=== PATIENT | male | born 1945 | race Caucasian/White ===

== ENCOUNTER → 2016-06-10 | Outpatient (CLI) | payer MEDICARE ==
[~2016-06-10] MED LIST: WILL BRING LIST
== END | disposition home or self-care (01) ==
LOC: CFH 15:18
PROVIDERS: ATTEND Internal Medicine
DX: E78.5 Hyperlipidemia, unspecified (principal); R09.89 Other specified symptoms and signs involving the circulatory and respiratory systems
CPT/HCPCS: 93880

== ENCOUNTER 2018-01-04 11:09 | Day surgery (SDC) | payer MEDICARE ==
[~2018-01-04] VITALS: Ht 175.3 cm; Wt 104.5 kg
[2018-01-04 11:34] VITALS: BP 125/95
[2018-01-04] MEDS ORDERED: CHOL200085 PO (11:54)
[2018-01-04] MEDS ORDERED: RIVA20TA PO (11:54)
[2018-01-04] MEDS ORDERED: ZOLP-413 PO (11:54)
[2018-01-04] MEDS ORDERED: ALLO100T30 PO (11:54)
[2018-01-04] MEDS ORDERED: MULT-6 PO (11:54)
[2018-01-04] MEDS ORDERED: MELO7.5T31 PO (11:54)
[2018-01-04] MEDS ORDERED: HYDR-3240 PO ×2 (11:54)
[2018-01-04] MEDS ORDERED: METO25TA2 PO (11:54)
[2018-01-04] MEDS ORDERED: berberine PO (11:56)
[2018-01-04] MEDS ORDERED: trintellix PO (12:02)
[2018-01-04] MEDS ORDERED: PROPOFOL 10 MG/ML, 20ML ONE (13:06)
== END 2018-01-04 14:45 | disposition home or self-care (01) ==
LOC: CACL 11:09
PROVIDERS: ATTEND Internal Medicine Cardiovascular Disease
DX: I48.91 Unspecified atrial fibrillation (principal); I35.1 Nonrheumatic aortic (valve) insufficiency; I34.0 Nonrheumatic mitral (valve) insufficiency; Z85.46 Personal history of malignant neoplasm of prostate; Z79.899 Other long term (current) drug therapy; Z98.890 Other specified postprocedural states
CPT/HCPCS: 92960; 93005; 93312; 93321; 93325; J2704

== ENCOUNTER 2018-03-01 10:26 | Day surgery (SDC) | payer MEDICARE ==
[~2018-03-01] VITALS: Ht 175.3 cm; Wt 103.1 kg
[~2018-03-01 10:26] MED LIST changes: +ALLO100T30 PO; +CHOL200085 PO; +ESZO3TAB28 PO; +HYDR-3240 PO; +MELO7.5T31 PO; +METO25TA2 PO; +MULT-6 PO; +RIVA20TA PO; +SOTA120T14 PO; +ZOLP-413 PO; +berberine PO; +trintellix PO
[2018-03-01 11:03] VITALS: BP 129/101
[2018-03-01] MEDS ORDERED: UBID1CAP43 PO (11:19)
[2018-03-01] MEDS ORDERED: METO100T5 PO (11:19)
[2018-03-01] MEDS ORDERED: Berberine PO (11:25)
[2018-03-01] MEDS ORDERED: AMIO200T42 PO (11:37)
[2018-03-01 11:48] LABS: ANION GAP 4 mmol/L (5-15); CALCIUM 9.5 mg/dL (8.5-10.1); CHLORIDE 109 mmol/L (98-107); CREATININE 0.92 mg/dL (0.7-1.3)
[2018-03-01] MEDS ORDERED: PROPOFOL 10 MG/ML, 20ML ONE (12:20)
== END 2018-03-01 13:40 | disposition home or self-care (01) ==
LOC: OUT 10:26
PROVIDERS: ATTEND Internal Medicine Cardiovascular Disease
DX: I48.91 Unspecified atrial fibrillation (principal); I42.9 Cardiomyopathy, unspecified; I36.1 Nonrheumatic tricuspid (valve) insufficiency; Z85.46 Personal history of malignant neoplasm of prostate
CPT/HCPCS: 36415; 80048; 92960; J2704

== ENCOUNTER → 2018-03-17 | Outpatient (CLI) | payer MEDICARE ==
[~2018-03-17] MED LIST changes: +AMIO200T42 PO; +Berberine PO; +CHOL20002 PO; -CHOL200085 PO; +METO100T5 PO; +REGADENOSON 0.4 MG/5 ML SYRINGE ONE; +UBID1CAP43 PO
== END | disposition home or self-care (01) ==
LOC: CFH 08:21
PROVIDERS: ATTEND Internal Medicine Cardiovascular Disease
DX: I36.1 Nonrheumatic tricuspid (valve) insufficiency (principal)
CPT/HCPCS: 78452; 93017; A9502; J2785

== ENCOUNTER → 2018-04-30 | Outpatient (CLI) | payer MEDICARE ==
[~2018-04-30] VITALS: Ht 175.3 cm; Wt 103.2 kg
[~2018-04-30] MED LIST changes: +Alpha Lipoic Acid PO; +COLC0.6T37 PO; +FAMO20TA7 PO; +FURO-92 PO; +MAGN54LI PO; +METO25TA35 PO; +MULT-658 PO; +POTA20TA6 PO; +PROPOFOL 10 MG/ML, 20ML ONE; -REGADENOSON 0.4 MG/5 ML SYRINGE ONE
[2018-04-30 12:53] VITALS: BP 120/92
[2018-04-30 13:00] LABS: BASOPHILS # (AUTO) 0.04 x10^3/uL (0-0.1); BASOPHILS % (AUTO) 1 % (0-1); EOSINOPHILS % (AUTO) 1 % (1-7); LYMPHOCYTES # (AUTO) 1.82 x10^3/uL (1-3.4); LYMPHOCYTES % (AUTO) 23 % (22-44); MD NO; MEAN CORPUSCULAR HEMOGLOBIN 30.8 pg (27.5-34.5); MEAN CORPUSCULAR HGB CONC 33.7 g/dL (33.2-36.2); MEAN CORPUSCULAR VOLUME 91.4 fL (81-97); MEAN PLATELET VOLUME 7.8 fL (7.4-10.4); MONOCYTES # (AUTO) 0.43 x10^3/uL (0.2-0.8); MONOCYTES % (AUTO) 5 % (2-9); NEUTROPHILS % (AUTO) 70 % (42-75); PLATELET COUNT 419 x10^3/uL (130-400); RED BLOOD COUNT 4.35 x10^6/uL (4.38-5.82); RED CELL DISTRIBUTION WIDTH 14.1 % (9.4-14.8)
[2018-04-30 13:08] LABS: ANION GAP 3 mmol/L (5-15); CALCIUM 8.7 mg/dL (8.5-10.1); CHLORIDE 110 mmol/L (98-107); CREATININE 0.72 mg/dL (0.7-1.3)
== END | disposition home or self-care (01) ==
LOC: RAD 11:02
PROVIDERS: ATTEND Nurse Practitioner Family
DX: Z01.810 Encounter for preprocedural cardiovascular examination (principal); I42.9 Cardiomyopathy, unspecified; I48.1 Persistent atrial fibrillation; J90 Pleural effusion, not elsewhere classified; J98.11 Atelectasis
CPT/HCPCS: 36415; 71046; 80048; 85025; 92960; 93005; J2704

== ENCOUNTER 2018-05-13 08:07 | Observation (INO) | payer MEDICARE ==
[2018-05-10 10:13] LABS: BASOPHILS # (AUTO) 0.03 x10^3/uL (0-0.1); BASOPHILS % (AUTO) 1 % (0-1); EOSINOPHILS % (AUTO) 0 % (1-7); LYMPHOCYTES # (AUTO) 1.76 x10^3/uL (1-3.4); LYMPHOCYTES % (AUTO) 24 % (22-44); MD NO; MEAN CORPUSCULAR HEMOGLOBIN 31.1 pg (27.5-34.5); MEAN CORPUSCULAR VOLUME 91.5 fL (81-97); MEAN PLATELET VOLUME 8.1 fL (7.4-10.4); MONOCYTES # (AUTO) 0.58 x10^3/uL (0.2-0.8); MONOCYTES % (AUTO) 8 % (2-9); NEUTROPHILS # (AUTO) 4.89 x10^3/uL (1.8-6.8); NEUTROPHILS % (AUTO) 67 % (42-75); PLATELET COUNT 284 x10^3/uL (130-400); RED CELL DISTRIBUTION WIDTH 13.6 % (9.4-14.8)
[2018-05-10 10:25] LABS: ANION GAP 6 mmol/L (5-15); CALCIUM 9.1 mg/dL (8.5-10.1); CHLORIDE 110 mmol/L (98-107); CREATININE 0.92 mg/dL (0.7-1.3)
[~2018-05-13] VITALS: Ht 175.3 cm; Wt 100.0 kg
[~2018-05-13 08:07] MED LIST changes: -PROPOFOL 10 MG/ML, 20ML ONE
[2018-05-13] MEDS ORDERED: SODIUM CHLORIDE 0.9% 1,000 ML IV SCH (08:25)
[2018-05-13] MEDS ORDERED: MIDAZOLAM 1 MG/ML, 2ML ONE (09:49)
[2018-05-13] MEDS ORDERED: FENTANYL PF 250 MCG/5ML ONE (09:49)
[2018-05-13] MEDS ORDERED: PROTAMINE SULFATE 10 MG/ML, 5ML ONE (10:12)
[2018-05-13] MEDS ORDERED: LIDOCAINE 1%, 20ML ONE (10:12)
[2018-05-13] MEDS ORDERED: ROCURONIUM 10MG/ML,5ML ONE (10:17)
[2018-05-13] MEDS ORDERED: PROPOFOL 10 MG/ML, 20ML ONE (10:17)
[2018-05-13] MEDS ORDERED: SUCCINYLCHOLINE 20 MG/ML, 10ML ONE (10:17)
[2018-05-13] MEDS ORDERED: DEXAMETHASONE 4 MG/ML, 5ML ONE (10:17)
[2018-05-13] MEDS ORDERED: EPHEDRINE 50 MG/ML, 1ML ONE (10:17)
[2018-05-13] MEDS ORDERED: ONDANSETRON 2MG/ML, 2ML ONE ×2 (11:51)
[2018-05-13] MEDS ORDERED: NEOSTIGMINE 1 MG/ML, 10ML ONE (11:53)
[2018-05-13] MEDS ORDERED: HYDROmorphone 2 MG/ML, 1ML IVPush PRN (12:30)
[2018-05-13] MEDS ORDERED: hydrALAzine 20 MG/ML, 1ML IV PRN (12:30)
[2018-05-13] MEDS ORDERED: ONDANSETRON 2MG/ML, 2ML IV PRN (12:30)
[2018-05-13] MEDS ORDERED: MEPERIDINE/PF 25MG/0.5ML IVPush PRN (12:30)
[2018-05-13] MEDS ORDERED: FENTANYL PF 100 MCG/2ML IV PRN (12:30)
[2018-05-13] MEDS ORDERED: PROMETHAZINE 25 MG/ML, 1ML IV PRN (12:30)
[2018-05-13] MEDS ORDERED: EPHEDRINE 50 MG/ML, 1ML IVPush PRN (12:30)
[2018-05-13] MEDS ORDERED: ONDANSETRON ODT 8 MG PO PRN (12:30)
[2018-05-13] MEDS ORDERED: MORPHINE SULFATE 4 MG/ML, 1ML IVPush PRN (12:30)
[2018-05-13] MEDS ORDERED: LABETALOL 5MG/ML, 20ML IV PRN (12:30)
[2018-05-13] MEDS ORDERED: PROMETHAZINE 12.5 MG SUPP PR PRN (12:30)
[2018-05-13] MEDS ORDERED: ALBUTEROL SULFATE 2.5 MG/3 ML NPPB PRN (12:30)
[2018-05-13] MEDS ORDERED: DIAZEPAM 5 MG/ML, 2ML IVPush PRN (12:30)
[2018-05-13] MEDS ORDERED: HALOPERIDOL 5 MG/ML IV PRN (12:30)
[2018-05-13] MEDS ORDERED: MIDAZOLAM 1 MG/ML, 2ML IV PRN (12:30)
[2018-05-13] MEDS ORDERED: OXYcodone 5 MG/5 ML ORAL.SOL UDC PO PRN (12:30)
[2018-05-13] MEDS ORDERED: FENTANYL PF 100 MCG/2ML ONE (12:53)
[2018-05-13] MEDS ORDERED: OXYcodone 5 MG/5 ML ORAL.SOL UDC ONE (12:53)
[2018-05-13] MEDS ORDERED: ONDANSETRON 2MG/ML, 2ML IVPush PRN (13:00)
[2018-05-13] MEDS ORDERED: RIVAROXABAN 20 MG TABLET PO ONE (13:00)
[2018-05-13] MEDS ORDERED: ACETAMINOPHEN 325 MG TABLET PO PRN (13:00)
[2018-05-13] MEDS ORDERED: ZOLPIDEM 5MG TABLET PO PRN (13:00)
[2018-05-13 13:37] VITALS: BP 120/72
[2018-05-13] MEDS ORDERED: HYDR-3307 PO (19:41)
[2018-05-13 19:46] VITALS: BP 114/74
[2018-05-13] MEDS ORDERED: HYDROcodone/APAP 10/325 MG TABLET PO ONE (20:00)
[2018-05-14 01:34] VITALS: BP 108/70
[2018-05-14 09:48] VITALS: BP 112/61
== END 2018-05-14 11:45 | disposition home or self-care (01) ==
LOC: CACL 08:07 → 5SO 12:49 → CACL 13:18 → DCLOUNGE 05-14 11:30
PROVIDERS: ADMIT Internal Medicine Cardiovascular Disease; ATTEND Internal Medicine Cardiovascular Disease
DX: I48.91 Unspecified atrial fibrillation (principal); I48.3 Typical atrial flutter; I45.9 Conduction disorder, unspecified; Z79.01 Long term (current) use of anticoagulants
CPT/HCPCS: 36415; 71046; 80048; 85025; 85347; 93005; 93308; 93321; 93325; 93613; 93656; 93662; C1730; C1732; C1759; C1766; C1893; C1894; G0378; J0330; J1100; J2250; J2405; J2704; J2710; J2720; J3010; J3490

== ENCOUNTER 2018-09-21 14:59 | Outpatient (CLI) | payer MEDICARE | END 2018-09-21 23:59 | disposition home or self-care (01) | LOC: CFH 14:59 | PROVIDERS: ATTEND Internal Medicine | DX: R07.9 Chest pain, unspecified (principal); R07.81 Pleurodynia | CPT/HCPCS: 71046 ==

== ENCOUNTER 2019-02-23 10:59 | Outpatient (CLI) | payer MEDICARE ==
[~2019-02-23 10:59] MED LIST changes: +HYDR-36 PO
[2019-02-23 13:09] LABS: BASOPHILS # (AUTO) 0.05 x10^3/uL (0-0.1); BASOPHILS % (AUTO) 1 % (0-1); EOSINOPHILS # (AUTO) 0.26 x10^3/uL (0-0.4); EOSINOPHILS % (AUTO) 3 % (1-7); LYMPHOCYTES # (AUTO) 3.02 x10^3/uL (1-3.4); LYMPHOCYTES % (AUTO) 37 % (22-44); MD NO; MEAN CORPUSCULAR HEMOGLOBIN 30.2 pg (27.5-34.5); MEAN CORPUSCULAR HGB CONC 33.2 g/dL (33.2-36.2); MEAN CORPUSCULAR VOLUME 90.9 fL (81-97); MEAN PLATELET VOLUME 8.3 fL (7.4-10.4); MONOCYTES # (AUTO) 0.56 x10^3/uL (0.2-0.8); MONOCYTES % (AUTO) 7 % (2-9); NEUTROPHILS # (AUTO) 4.29 x10^3/uL (1.8-6.8); NEUTROPHILS % (AUTO) 53 % (42-75); PLATELET COUNT 292 x10^3/uL (130-400); RED BLOOD COUNT 5.33 x10^6/uL (4.38-5.82); RED CELL DISTRIBUTION WIDTH 13.8 % (9.4-14.8)
[2019-02-23 13:30] LABS: ANION GAP 6 mmol/L (5-15); CALCIUM 9.5 mg/dL (8.5-10.1); CHLORIDE 110 mmol/L (98-107)
[2019-02-24] MEDS ORDERED: OMEG1CAP23 PO (07:22)
[2019-02-24] MEDS ORDERED: APIX5TAB PO (07:22)
[2019-02-24] MEDS ORDERED: ZOLP-413 PO (07:22)
[2019-02-24] MEDS ORDERED: MULT-658 PO (07:22)
[2019-02-24] MEDS ORDERED: CHOL100011 PO (07:22)
[2019-02-24] MEDS ORDERED: CALC-355 PO (07:22)
[2019-02-24] MEDS ORDERED: MELO7.5T31 PO (07:22)
[2019-02-24] MEDS ORDERED: METO25TA91 PO (07:22)
== END 2019-02-23 23:59 | disposition home or self-care (01) ==
LOC: CFH 10:59
PROVIDERS: ATTEND Nurse Practitioner Family
DX: Z01.810 Encounter for preprocedural cardiovascular examination (principal); J98.11 Atelectasis; I36.1 Nonrheumatic tricuspid (valve) insufficiency; I42.9 Cardiomyopathy, unspecified; I48.0 Paroxysmal atrial fibrillation; M47.894 Other spondylosis, thoracic region
CPT/HCPCS: 36415; 71046; 80048; 85025

== ENCOUNTER 2019-02-24 06:39 | Day surgery (SDC) | payer MEDICARE ==
[~2019-02-24] VITALS: Ht 175.3 cm; Wt 99.5 kg
[2019-02-24 07:05] VITALS: BP 136/95
[2019-02-24] MEDS ORDERED: MULT-658 PO (07:22)
[2019-02-24] MEDS ORDERED: MELO7.5T31 PO (07:22)
[2019-02-24] MEDS ORDERED: APIX5TAB PO (07:22)
[2019-02-24] MEDS ORDERED: CHOL100011 PO (07:22)
[2019-02-24] MEDS ORDERED: ZOLP-413 PO (07:22)
[2019-02-24] MEDS ORDERED: CALC-355 PO (07:22)
[2019-02-24] MEDS ORDERED: OMEG1CAP23 PO (07:22)
[2019-02-24] MEDS ORDERED: METO25TA91 PO (07:22)
[2019-02-24] MEDS ORDERED: PROPOFOL 10 MG/ML, 20ML ONE (07:40)
[2019-02-24] MEDS ORDERED: SODIUM CHLORIDE FLUSH 10ML SYR IVF SCH (09:00)
== END 2019-02-24 08:26 | disposition home or self-care (01) ==
LOC: CACL 06:39
PROVIDERS: ATTEND Internal Medicine Cardiovascular Disease
DX: I48.4 Atypical atrial flutter (principal); I48.0 Paroxysmal atrial fibrillation; I42.9 Cardiomyopathy, unspecified; I36.1 Nonrheumatic tricuspid (valve) insufficiency; E66.3 Overweight; Z68.33 Body mass index [BMI] 33.0-33.9, adult; Z79.1 Long term (current) use of non-steroidal anti-inflammatories (NSAID); Z79.01 Long term (current) use of anticoagulants; Z79.899 Other long term (current) drug therapy; Z85.46 Personal history of malignant neoplasm of prostate; Z90.79 Acquired absence of other genital organ(s)
CPT/HCPCS: 92960; J2704

== ENCOUNTER 2019-03-21 19:01 | Emergency (ER) | payer MEDICARE ==
[~2019-03-21] VITALS: Ht 175.3 cm; Wt 105.0 kg
[~2019-03-21 19:01] MED LIST changes: +APIX5TAB PO; +CALC-355 PO; +CHOL100011 PO; +METO25TA91 PO; +OMEG1CAP23 PO
--- NOTE | 2019-03-21 19:34 | NUR ---
ASSUMED CARE OF PATIENT. PT REPORTS HE IS IN AFIB/AFLUTTER WITH SOB. HX OF. CHIEF SCIENTIST ON. AFLUTTER NOTED AT 145. PULSE OX ON. BP STABLE. AT BEDSIDE. CALL LIGHT IN PLACE. IV STARTED. WILL CONTINUE TO MONITOR.
--- NOTE | 2019-03-21 19:47 | NUR ---
DR LUO IN ROOM
[2019-03-21] MEDS ORDERED: METOPROLOL 1 MG/ML, 5ML IVPush PRN (20:00)
[2019-03-21] MEDS ORDERED: SODIUM CHLORIDE FLUSH 10ML SYR IVF ONE (20:00)
[2019-03-21 20:09] LABS: BASOPHILS % (AUTO) 0 % (0-1); EOSINOPHILS # (AUTO) 0.01 x10^3/uL (0-0.4); EOSINOPHILS % (AUTO) 0 % (1-7); LYMPHOCYTES # (AUTO) 0.85 x10^3/uL (1-3.4); LYMPHOCYTES % (AUTO) 12 % (22-44); MD NO; MEAN CORPUSCULAR HEMOGLOBIN 30.5 pg (27.5-34.5); MEAN CORPUSCULAR HGB CONC 33.5 g/dL (33.2-36.2); MEAN CORPUSCULAR VOLUME 90.8 fL (81-97); MEAN PLATELET VOLUME 8.2 fL (7.4-10.4); MONOCYTES # (AUTO) 0.07 x10^3/uL (0.2-0.8); MONOCYTES % (AUTO) 1 % (2-9); NEUTROPHILS # (AUTO) 5.95 x10^3/uL (1.8-6.8); NEUTROPHILS % (AUTO) 87 % (42-75); PLATELET COUNT 270 x10^3/uL (130-400); RED BLOOD COUNT 5.06 x10^6/uL (4.38-5.82); RED CELL DISTRIBUTION WIDTH 14.3 % (9.4-14.8)
[2019-03-21 20:15] LABS: ALBUMIN 4.4 g/dL (3.4-5.0); ANION GAP 5 mmol/L (5-15); CALCIUM 9.6 mg/dL (8.5-10.1); CHLORIDE 109 mmol/L (98-107); CREATININE 1.08 mg/dL (0.7-1.3)
[2019-03-21 20:19] LABS: TROPONIN I < 0.015 ng/mL (0.000-0.045)
--- NOTE | 2019-03-21 20:37 | NUR ---
DR VALERIO KWANS LOPRESSER HELD
[2019-03-21] MEDS ORDERED: PROPOFOL 10 MG/ML, 20ML ONE (20:42)
--- NOTE | 2019-03-21 21:09 | NUR ---
CARDIOVERSION DONE. PT TOLERATED WELL. NSR NOTED AT 89. PT ALERT AND TALKING. VS STABLE. AT BEDSIDE. CALL LIGHT IN PLACE.
--- NOTE | 2019-03-21 21:13 | NUR ---
REPORT RECEIVED, POC DISCUSSED, CARE ASSUMED.
[2019-03-21] MEDS ORDERED: PROPOFOL 10 MG/ML, 20ML IVPush ONE (21:30)
--- NOTE | 2019-03-21 22:04 | NUR ---
PT DC'D HOME WITH UNDERSTANDING OF INSTRUCTIONS. PT AND TO DC DESK, PT GAIT STEADY.
[2019-03-21 22:06] VITALS: BP 124/85
== END 2019-03-21 22:09 | disposition home or self-care (01) ==
LOC: ED 20:00
DX: I48.0 Paroxysmal atrial fibrillation (principal)
CPT/HCPCS: 36415; 71045; 80048; 82040; 83880; 84484; 85025; 92960; 93005; 96374; 99291; J2704

== ENCOUNTER 2019-03-31 07:07 | Outpatient (CLI) | payer MEDICARE | END 2019-03-31 23:59 | disposition home or self-care (01) | LOC: CVU 07:07 | PROVIDERS: ATTEND Internal Medicine Cardiovascular Disease | DX: I08.3 Combined rheumatic disorders of mitral, aortic and tricuspid valves (principal); Z79.01 Long term (current) use of anticoagulants | CPT/HCPCS: 93306; 93356 ==